=== PATIENT | female | born 1985 | race Caucasian/White ===

== ENCOUNTER 2025-07-29 16:22 | Emergency (ER) | payer OTHER, SELFPAY ==
--- OUTSIDE RECORDS SUMMARY | 2024-04-12 15:30 | XMS_ITS ---
Author Organization [facility] Care Address [address] [place] [address] Care Team Providers Care Brake Shoe Rebuilder Name Role Phone Eugenie Scales Primary Care Provider Migration, Provider Unavailable Unavailable Allergies Allergen (clinical drug ingredient) Drug/Non Drug Allergy documented on EMR Reaction Allergy Type Onset Date Status codeine Codeine Unknown Drug Allergy Active [facility] Conversion Encounter Medications Medication SIG (Take, Route, Frequency, Duration) Notes Start Date End Date Status Bactrim DS 800-160 MG 1 tab(s) orally 2 times a day; Duration: 5 days 11/13/2018Active Encounters Encounter Location Date Provider Diagnosis [address] [address] 04/12/2024 Provider Migration Urinary tract infection, site not specified N39.0 Assessments Encounter Date Diagnosis (ICD Code) Assessment Notes Treatment Notes Treatment Clinical Notes Section Notes 04/12/2024 Urinary tract infection, site no t specified (ICD-10 - N39.0) Plan Of Treatment Medication Medication Name Sig Start Date Stop Date Notes Bactrim DS 800-160 MG 1 tab(s) orally 2 times a day; Duration: 5 days 11/13/2018 Progress Notes * Rosalind HERNANDEZ LDOB:[birth year] (40 yo F)Acc No.[id number]:04/12/2024 Patient:?Rosalind HERNANDEZ :?:1985???Age:39 Y???Sex:FemaleDate: 4Phone:[phone]:[address] [place], [place] [id number] Pcp:Eugenie Scales Subjective: * Chief Complaints: * 1 . Multum To Medispan Conversion Encounter. * Medical History: * Allergies: C odeine. Objective: * Vitals: Assessment: * Assessment: 1.?Urinary tract infection, site not specified - N39.0 (Primary)??? Plan: * Treatment: Start Bactrim DS Tablet, 800-160 MG, 1 tab(s), orally, 2 times a day, 5 days, 10 Tablet, Refills 0. ? * Images: * Electronic signature of Provider Migration on 07/29/2025 at 06:47 PM ESTSign off status: Pending * Provider: Date: 0 04/12/2024 Generated for Printing/Faxing/eTransmitting on:?07/29/2025 06:47 PM EST
[2025-07-29 16:33] VITALS: BP 119/74; PULSE 88; RESP 20; TEMP 36.6; O2SAT 98; BMI 32.0
--- NOTE | 2025-07-29 16:35 | CRLHL7_ITS ---
For Patients: As a result of the Cures Act, medical imaging exams and procedure reports are released immediately into your electronic medical record. You may view this report before your referring provider. If you have questions, please contact your health care provider. INDICATION: Fall with wrist pain radiating to the elbow after a sledding accident COMPARISON: None. TECHNIQUE: Two radiographic view(s) of the left forearm. FINDINGS: Acute minimally displaced fracture of the distal ulna metadiaphysis. IMPRESSION: Acute minimally displaced fracture of the distal ulna metadiaphysis. Dictated by Amos Gomes MD @ 07/29/2025 5:05:52 PM (Electronically Signed)
--- NOTE | 2025-07-29 17:21 | ED.UPPEXIN ---
HPI - Extremity Injury (Upper) General Chief Complaint: Extremity Pain/Injury, Upper Stated Complaint: broken arm Time Seen by Provider: 07/29/25 16:54 History of Present Illness HPI narrative: This 40-year-old female comes in with an injury to her left forearm. She was sledding and came off of the sled onto her left outstretched hand. She has pain in her left wrist area. She does not report any other injury. She did not hit her head or have loss of consciousness. Related Data Home Medications ?Medication ?Instructions ?Recorded ?Confirmed No Known Home Medications 07/29/25 07/29/25 Allergies Allergy/AdvReac Type Severity Reaction Status Date / Time codeine Allergy Intermediate Vomiting Verified 07/29/25 16:31 Review of Systems Status of ROS: Reports: 10 or more systems reviewed and unremarkable except as noted in History and below Narrative: Constitutional: No fevers, no weight gain or loss. Eyes: No discharge. No vision changes. HENT: No congestion, no sore throat, no ear pain. Cardiovascular: No chest pain, no palpitations. Respiratory: No shortness of breath, no wheezes, no cough. Gastrointestinal: No abdominal pain, no vomiting, no diarrhea. Genitourinary: No dysuria, no hematuria. Musculoskeletal: Left forearm injury. Skin: No rashes, no pruritis. Neurological: No dizziness, weakness, sensory change, speech change. Endo/Heme/Allergies: No bruising or bleeding. No polydipsia. Pysch: no suicidality, no anxiety, no insomnia. All other systems reviewed and are negative. Exam Narrative: Exam Narrative: Constitutional: Well-developed, well-nourished, no acute distress. HEENT: Normocephalic, atraumatic. Neck: Normal range of motion. Nontender. Supple. Heart: Intact distal pulses. Lungs: No chest discomfort. No wheezes, rhonchi, or rales. Abdomen: Nontender. Back: Normal range of motion. Extremities: Normal range of motion. Diffuse pain in the left wrist and distal forearm. No sign of deformity. Skin: Intact. No rash. Warm. No erythema or pallor. Neurologic: No altered sensation. No weakness. Alert and oriented. Psychiatric: No suicidality. No anxiety or depression. No insomnia. Nursing notes and vitals signs are reviewed. Const: Vital Signs, click to edit/add: Vital Signs - 24 hr 07/29/25 16:33 Temperature 97.9 F Pulse Rate [Pulse Oximeter] 88 Respiratory Rate 20 Blood Pressure [Ri ght Upper Arm] 119/74 Pulse Oximetry 98 Oxygen Delivery Me thod Room Air Course Vital Signs Vital signs: Initial Vital Signs Temperature 97.9 F 07/29/25 16:33 Temperature Source Temporal Artery Scan 07/29/25 16:33 Pulse Rate 88 07/29/25 16:33 Respiratory Rate 20 07/29/25 16:33 Blood Pressure 119/74 07/29/25 16:33 Blood Pressure Mean 89 07/29/25 16:33 Pulse Oximetry 98 07/29/25 16:33 Oxygen Delivery Method Room Air 07/29/25 16:33 Vital Signs Temperature 97.9 F 07/29/25 16:33 Pulse Rate 88 07/29/25 16:33 Respiratory Rate 20 07/29/25 16:33 Blood Pressure 119/74 07/29/25 16:33 Pulse Oximetry 98 07/29/25 16:33 Oxygen Delivery Method Room Air 07/29/25 16:33 Temperature 97.9 F 07/29/25 16:33 Pulse Rate 88 07/29/25 16:33 Respiratory Rate 20 07/29/25 16:33 Blood Pressure 119/74 07/29/25 16:33 Pulse Oximetry 98 07/29/25 16:33 Oxygen Delivery Method Room Air 07/29/25 16:33 MDM - Extremity Injury (Upper) MDM Narrative Medical decision making narrative: X-ray images are obtained of the left forearm and show evidence of a nondisplaced fracture in the distal ulna. The patient was placed in a volar forearm splint using Ortho Glass material. She and her are visiting from [facility]. She will return to [facility] after returning to [facility] for ongoing management of this injury. Imaging Data XR L Forearm: Radiologist's impression: Acute minimally displaced fracture of the distal ulna metadiaphysis. Discharge Plan Discharge Clinical Impression: Fracture of wrist Patient Disposition: Home, Self-Care Condition: Stable Additional Instructions: Wear splint and use nntb-xid-hnuehgt medicines as needed and directed. Follow-up with orthopedic clinic for ongoing management. Prescriptions: No Action No Known Home Medications Stand Alone Forms: [employer] Info Instructions
--- OUTSIDE RECORDS SUMMARY | 2025-07-29 17:48 | XMS_ITS | Patient Health Record ---
Author Organization [facility] Address [address] [place] [address] Care Team Providers Care Tare Weigher Name Role Phone Page Mendiola Primary Care Provider Unavaila MORENO Swain Unavailable [phone] Allergies No Known Allergies Reason For Referral No Information Medications Medication SIG (Take, Route, Frequency, Duration) Notes Start Date End Date Status Fiber Active Social History Tobacco Use: Social History Observation Description Date Details (start date - stop date) Never Smoker NA - NA Tobacco Use/Smoking Question Answer Notes Tobacco use: nonsmoker Problems Problem Type SNOMED Code ICD Code Onset Dates Problem Status W/U Status Risk Notes Problem Hallux rigidus (8680154) Hallux rigidus ( M20.22) Activeconfirmed Plan Of Treatment No Information Insurance Providers Payer Name Payer Address Payer Phone Subscriber Number Group Number Insured Name Patient Relationship to Insured Coverage Start Date Coverage End Date [facility] [id number] [place], [place] [id number] NAYE HERNANDEZ Spouse - patient is the spouse of the insured Medical (General) History Surgical History Surgery Date(Month/Year) JAW MOVED
--- OUTSIDE RECORDS SUMMARY | 2025-07-29 17:48 | XMS_ITS | Patient Health Record ---
Author Organization [facility] Care Address [address] [place] [address] Care Team Providers Care Chief Executive Name Role Phone Eugenie Scales Primary Care Provider [phone] Allergies Allergen (clinical drug ingredient) Drug/Non Drug Allergy documented on EMR Reaction Allergy Type Onset Date Status codeine Codeine Unknown Drug Allergy Active Reason For Referral No Information Medications Medication SIG (Take, Route, Frequency, Duration) Notes Start Date End Date Status Bactrim DS 800-160 MG 1 tab(s) orally 2 times a day; Duration: 5 days 11/13/2018Active Social History Tobacco Use: Social History Observation Description Date Details (start date - stop date) Never Smoker NA - NA Smoking: Question Answer Notes Patient is a: never smoker Plan Of Treatment No Information Insurance Providers Payer Name Payer Address Payer Phone Subscriber Number Group Number Insured Name Patient Relationship to Insured Coverage Start Date Coverage End Date [facility] Community Plan(NOT [place]) [id number] Romeo Leal - patient is the insured Medical (General) History Surgical History Surgery Date(Month/Year) oral surgery
--- OUTSIDE RECORDS SUMMARY | 2025-07-29 17:48 | XMS_ITS | Clinical Summary ---
Author Organization [facility] Address [address] [place] [address] Phone Care Team Providers Care Intellectual Property Paralegal Name Role Phone Page Mendiola MD Primary Care Provider [phone] Allergies Active AllergyReactionsCriticalityNoted PkpyQhqrdjffBpcdpkj80/29/2022 Medications MedicationSigDispense QuantityRefillsLast FilledStart DateEnd DateStatus ergocalciferol (Vitamin D-2) 1.25 MG (59592 UT) capsule Take 1 capsule (50,000 Units) by mouth.Active Active Problems ProblemNoted DateDiagnosed DateAbnormal weight gain09/13/2022 Assessment & Plan (09/13/2022 4:31 PM EST): I had a long detailed conversation with the patient regarding her obesity. She has not gained any weight but has not been successful at losing. We have discussed different lifestyle interventions that she could possibly consider but I do believe that she would be a great candidate to try Qsymia as it appears that if she were to have a appetite suppressant, may be very helpful in making some new habits. The patient is giving it some thought. I let her know that she can either take Qsymia and look up different coupons for discount or she could even take Topamax and phentermine alone. I have discussed risk benefits and side effects of what the medications are and what they are used for in order to give her a better background of the medication. If she decides to start this medication I wouldlike to see her in the office and we will sign a controlled substance contract and do an EKG at that time. I have encouraged her to try different things as doing the same thing and expecting a different result can be very frustrating and she may need to do a complete 180 with her diet and exercise in order to make some headway. I have also ordered a gamut of blood test to rule out any underlying cause. Patient also questions whether she has a hormone imbalance that could be causing this and is requesting sex hormone testing. She has been off of her control however is not having any menst rual cycle changes hirsutism or hyperpigmentation nor any other signs of any sex hormone abnormalities. I have let her know for further investigation I would recommend that she see an endocrinologistor see her track supervisor back but I will order a thyroid-stimulating hormone and follow-up those results. Elevated serum uyqwimixxf86/25/2022Mixed /25/2022eviated nasal hzbsnt3204/05/2021Hypertrophy, nasal, cuogvuguo50/07/2021leep disorder breathing 04/05/2021Obesity (BMI 30-39.9)03/08/2021 Resolved Problems ProblemNoted DateDiagnosed DateResolved VvuiOjdlxrsm03rimary wfoxwcv12/11/2021Encounter for preventive health /05/2021 03/03/2022 Immunizations ImmunizationAdministration DatesNext TmlQGGN-UdO-2 Vacc (Moderna)02/19/2021Tdap 05/30/2015 Family History Medical HistoryRelationNameCommentsNo Known ProblemsBrotherNo Known Problems FatherNo Known ProblemsMotherNo Known ProblemsSisterRelationNameStatusComments BrotherFatherMotherSister Social History Tobacco UseTypesPacks/DayYears UsedDateSmoking Tobacco: NeverSmokeless Tobacco: Never Tobacco Cessation:Counseling Given: Not Answered Alcohol UseStandard Drinks/WeekCommentsNever0 (1 standard drink = 0.6 oz pure alcohol)Humiliation, Afraid, Rape, and Kick questionnaireAnswerDate Recorded Within the last year, have you been afraid of your partner or ex-partner?No 09/13/2022Within the last year, have you been humiliated or emotionally abused in other ways by your partner or ex-partner?No09/13/2022Within the last year, have you been kicked, hit, slapped, or otherwise physically hurt by your partner or ex-partner?No09/13/2022Within the last year, have you been raped or forced to have any kind of sexual activity by your partner or ex-partner?No09/13/2022 Social Connection and Isolation PanelAnswerDate RecordedIn a typical week, how many times do you talk on the phone with family, friends, or neighbors?More than three times a week09/13/2022How often do you get together with friends or relatives?Twice a week09/13/2022How often do you attend holiness or worship services?More than 4 times per year09/13/2022o you belong to any clubs or organizations such as holiness groups, unions, fraternal or athletic groups, or school groups?No09/13/2022How often do you attend meetings of the clubs or organizations you belong to?Never09/13/2022re you , , , , never , or living with a partner?Qyfaolt3809/13/2022UDIT-C AnswerDate RecordedQ1: How often do you have a drink containing alcohol?Monthly or less09/13/2022Q2: How many drinks containing alcohol do you have on a typical day when you are drinking?1 or Q3: How often do you have six or more drinks on one occasion?Never09/13/2022Overall Financial Resource Strain (CARDIA) AnswerDate RecordedHow hard is it for you to pay for the very basics like food, housing, medical care, and heating?Not hard at all09/13/2022HQ-2AnswerDate RecordedPatient Health Questionnaire-2 Kcfpa195Finmountainstar healthcare [place] of Occupational Health - Occupational Stress QuestionnaireAnswerDate RecordedDo you feel stress - tense, restless, nervous, or anxious, or unable to sleep at night because yourmind is troubled all the time - these days?Not at all09/13/2022 Exercise Vital SignAnswerDate RecordedOn average, how many days per week do you engage in moderate to strenuous exercise (like a brisk walk)?3 days09/13/2022On average, how many minutes do you engage in exercise at this level?60 min 09/13/2022Hunger Vital SignAnswerDate RecordedWithin the past 12 months, you worried that your food would run out before you got the money to buymore.Never true09/13/2022Within the past 12 months, the food you bought just didn't last and you didn't have money to get more.Never true09/13/2022RAPARE - TransportationAnswerDate RecordedIn the past 12 months, has lack of transportation kept you from medical appointments or from getting medications?No 09/13/2022In the past 12 months, has lack of transportation kept you from meetings, work, or from getting things needed for daily living?No09/13/2022 Housing Stability Vital SignAnswerDate RecordedIn the last 12 months, was there a time when you were not able to pay the mortgage or rent on time?No09/13/2022In the last 12 months, how many places have you lived?In the last 12 months, was there a time when you did not have a steady place to sleep or slept in [facility] (including now)?No09/13/2022CommentsNoSex and Gender InformationValueDate RecordedSex Assigned at BirthNot on fileLegal SexFemale 12/15/2021 11:35 PM EDTGender IdentityNot on fileSexual OrientationNot on file Last Filed Vital Signs Vital SignReadingTime TakenCommentsBlood Ponnepun66/6507 8:07 AM EDT Phfok2220 8:07 AM AZFBuwgvfziqyd09 ??C (98.6 ??F)02/09/2023 8:07 AM EDT Respiratory Yxvy088409/13/2022 8:49 AM ESTOxygen Qcmifkptfv65%02/09/2023 8:07 AM EDTInhaled Oxygen Concentration--Rohdlq47.6 kg (177 lb 12.8 oz)02/09/2023 8:07 AM UUMCcjqwz506.5 cm (5' 2)02/09/2023 8:07 AM EDTBody Mass Index32.52002/09/2023 8:07 AM EDT Plan of Treatment DateTypeDepartmentCare Team (Latest Contact Info)Kabsptqfklc11/06/2026 9:00 AM ESTOffice Visit [facility] [address] [place] [id number] Page Mnediola MD [address] [place] [address] Health MaintenanceDue DateLast DoneCommentsHIV Hyqzxjjds1983*Depression Ocbkxvnmw87/24/1995*Tobacco Avmmablcz17/24/1995Hepatitis C Egdrpkuln07/24/2001 Hepatitis B Vaccines (1 of 3 - 19+ 3-dose series)2002HPV/Nlxxny7301/20/2013 *Tsexiqkzs55/24/2023nnual Physical Exam/ervical Cancer Yrnwwavrf13/17/2024Pap Smear07/15/2024*Influenza Vaccine (#1)2025 DTaP/Tdap/Td Vaccines (2 - Td or Tdap)Zoster Vaccines (1 of 2)2033HIB VaccinesAged OutNo longer eligible based on patient's age to complete this topicIPV VaccinesAged OutNo longer eligible based on patient's age to complete this topicRotavirus VaccinesAged OutNo longer eligible based on patient's age to complete this topic Insurance Care Teams Team MemberRelationshipSpecialtyStart DateEnd Date Page Mendiola MD [address] [place] [address] PCP - [facility]02/09/23
--- OUTSIDE RECORDS SUMMARY | 2025-07-29 17:48 | XMS_ITS | Clinical Summary ---
Author Organization [facility] Address [address] [place] [address] Care Team Providers Care Trade Manager Name Role Phone Roberto Garcia MD Primary Care Provider Unav ailable Allergies No known active allergies Medications No known medications Social History Tobacco UseTypesPacks/DayYears UsedDateSmoking Tobacco: Never Assessed CommentsUnknownSex and Gender InformationValueDate RecordedSex Assigned at Not on fileLegal GncIrtpww26/24/2013 11:03 AM CSTGender IdentityNot on file Sexual OrientationNot on file Last Filed Vital Signs Vital SignReadingTime TakenCommentsBlood Kwuvjcod804/7012 11:00 AM GREASE CUP FILLER Vxzxq527907/28/2013 11:00 AM CSTTemperature--Respiratory Lqzw6919 11:00 AM CSTOxygen Saturation--Inhaled Oxygen Concentration--Weight--Height--Body Mass Index-- Plan of Treatment Not on file Care Teams Team MemberRelationshipSpecialtyStart DateEnd Date Roberto Garcia MD PCP - GeneralFamily Tatsqdmk71/27/13
== END 2025-07-29 18:19 | disposition home or self-care (01) ==
LOC: ED 17:47
PROVIDERS: Emergency Provider Emergency Medicine Emergency Medical Services
DX: S52.602A Unspecified fracture of lower end of left ulna, initial encounter for closed fracture (principal); W00.9XXA Unspecified fall due to ice and snow, initial encounter; Y93.23 Activity, snow (alpine) (downhill) skiing, snowboarding, sledding, tobogganing and snow tubing
CPT/HCPCS: 29125; 73090; 99283; 99284